=== PATIENT | male | born 1965 | race Two or more races ===

== ENCOUNTER 2018-05-19 06:59 | Day surgery (SDC) | payer OTHER ==
[~2018-05-19 06:59] MED LIST: CIPROFLOXACIN 400 MG in D5W 200 ML IVPB
[2018-05-19] MEDS ORDERED: ACETAMINOPHEN 1000 MG/100 ML IVPB (07:00)
[2018-05-19] MEDS ORDERED: FENTAnyl 50 MCG/ML VIAL (10:14)
[2018-05-19] MEDS ORDERED: MIDAZOLAM 1 MG/ML 2 ML INJ (10:14)
[2018-05-19] MEDS ORDERED: PROPOFOL 20 ML (10:14)
[2018-05-19] MEDS ORDERED: LIDOCAINE 2% (SDV) 5 ML INJ (10:15)
[2018-05-19] MEDS ORDERED: DEXAMETHASONE 4 MG/ML 1 ML INJ (10:16)
[2018-05-19 11:45] LABS: ADD MAN DIFF? NO
[2018-05-19 11:46] LABS: WHITE BLOOD COUNT 9.1 10^3/ul (4.8-10.8)
[2018-05-19 11:46] LABS: BASOPHIL # 0.1 10^3/ul (0.0-0.1); BASOPHILS % 0.6 % (0.0-2.0); EOSINOPHILS # 0.2 10^3/ul (0.0-0.5); EOSINOPHILS % 1.8 % (0.0-7.0); HEMATOCRIT 40.4 % (42.0-52.0); HEMOGLOBIN 12.6 g/dl (14.0-18.0); LYMPHOCYTES % 22.1 % (15.0-51.0); MEAN CORPUSCULAR HEMOGLOBIN 27.2 pg (29.0-33.0); MEAN CORPUSCULAR HGB CONC 31.2 g/dl (32.0-37.0); MEAN CORPUSCULAR VOLUME 87.3 fl (82.0-101.0); MEAN PLATELET VOLUME 11.3 fl (7.4-10.4); MONOCYTE # 0.5 10^3/ul (0.3-0.9); MONOCYTES % 5.1 % (0.0-11.0); NEUTROPHIL # 6.4 10^3/ul (1.6-7.5); NEUTROPHILS % 70.2 % (39.0-77.0); PLATELET COUNT 232 10^3/UL (140-415); RED BLOOD COUNT 4.63 10^6/ul (4.70-6.10); RED CELL DISTRIBUTION WIDTH 15.1 % (11.5-14.5)
[2018-05-19 11:51] LABS: INR 1.02; PROTIME 13.5 Sec (11.9-14.9); PT RATIO 1.1
[2018-05-19 11:52] LABS: PARTIAL THROMBOPLASTIN TIME 30.3 Sec (25.0-35.0)
[2018-05-19 11:55] LABS: ANION GAP 13 (8-16); BLOOD UREA NITROGEN 24 mg/dl (7-20); CALCIUM 9.2 mg/dl (8.4-10.2); CARBON DIOXIDE 26 mmol/L (21-31); CHLORIDE 109 mmol/L (97-110); CREATININE 1.13 mg/dl (0.61-1.24); GLUCOSE 107 mg/dl (70-220); POTASSIUM 4.1 mmol/L (3.5-5.1); SODIUM 144 mmol/L (135-144)
[2018-05-19] MEDS ORDERED: HYDROmorphONE 1 MG/5 ML IV SYRINGE IV ×2 (12:30)
[2018-05-19] MEDS ORDERED: DIPHENHYDRAMINE 50 MG INJ IV (12:30)
[2018-05-19] MEDS ORDERED: hydrALAzine 20 MG INJ IV (12:30)
[2018-05-19] MEDS ORDERED: IPRATROPIUM (NEB) 0.5 MG/2.5 ML AMP HHN (12:30)
[2018-05-19] MEDS ORDERED: LABETALOL HCL 20MG INJ IV (12:30)
[2018-05-19] MEDS ORDERED: FENTAnyl 50 MCG/ML VIAL IV (12:30)
[2018-05-19] MEDS: ONDANSETRON 4 MG INJ IV (12:39)
[2018-05-19] MEDS: FENTAnyl 50 MCG/ML VIAL IV ×2 (12:39→12:49)
[2018-05-19] MEDS: MEPERIDINE 25 MG INJ IV (12:39)
[2018-05-19] MEDS: KETOROLAC 30 MG INJ IV (12:40)
== END 2018-05-19 15:27 | disposition home or self-care (01) ==
LOC: SDS 06:59
DX: N21.0 Calculus in bladder (principal); E11.9 Type 2 diabetes mellitus without complications
CPT/HCPCS: 52318; 80048; 82962; 85025; 85610; 85730; 88300